=== PATIENT | male | born 1990 | race Caucasian/White ===

== ENCOUNTER 2024-12-17 07:16 | Emergency (ER) | payer BC, OTHER, SELFPAY ==
[2024-12-17] VITALS (19 sets, daily range): BP systolic 78–133; BP diastolic 41–88; PULSE 53–79; RESP 14–18; TEMP 36.4; O2SAT 90–100; BMI 28.9
--- NOTE | 2024-12-17 07:33 | ED_ITS ---
HPI - General Adult General Chief complaint: Chest Pain Stated complaint: chest pain Time Seen by Provider: 12/17/24 07:33 History of Present Illness HPI narrative: Presents with chest pain, started on wednesday- took some ibuprofen and it got better, started last night again at 9- took aspirin and ibuprofen. Having lightheadedness and shortness of breath with it. 34-year-old man presenting to the emergency department with 5 days of chest pain. This pain is sharp and pleuritic and located more on the left side. Does work out regularly and at initial onset thought maybe it was related to workout but had been primarily a leg day. Did go to the chiropractor and got some things adjusted. Subsequently took 800 mg of ibuprofen it seemed to help. Is not having any radicular symptoms. Admittedly might feel little bit better to sit up but it is hard to get comfortable. No noted palpitations. No noted chest trauma. Does not smoke any longer. General sickness in the house and he has had some cold symptoms recently but not any longer. No persistent cough. No fever. Related Data Home Medications ?Medication ?Instructions ?Recorded ?Confirmed No Known Home Medications 07/24/22 12/17/24 Allergies Allergy/AdvReac Type Severity Reaction Status Date / Time No Known Drug Allergies Allergy Verified 12/17/24 07:27 Review of Systems Status of ROS: Reports: 6 or more systems reviewed and unremarkable except as noted in History and below [facility] Social History Narrative: single, no kids, construction Smoking Status: Former smoker Second hand tobacco smoke exposure: No How often do you have a drink containing alcohol: 2-3 times a week How many standard drinks containing alcohol do you have on a typical day: 3 or 4 AUDIT-C Alcohol total score: 4 Non-prescribed substance use: marijuana (any form) Exam Narrative: Exam Narrative: Pleasant. Clearly uncomfortable in splinting his breathing. Hesitates in apparent discomfort to transition; to sit up or lie down. Neck is supple withou t lymphadenopathy. Trachea is midline. There is no supraclavicular crepitus. Lungs are clear with equal expansion the chest. Breath sounds throughout. Pain is not reproducible to palpation over the anterior chest or upper abdomen. Abdomen is soft nontender. Heart in regular rate and rhythm without murmur rub or gallop. Extremities are without edema. He is well-perfused. Const: Vital Signs, click to edit/add: Vital Signs - 24 hr 12/17/24 07:20 12/17/24 07:52 12/17/24 07:53 Temperature 97.6 F Pulse Rate 68 71 Pulse Rate [Pulse Oximeter] 79 Respiratory Rate 18 Blood Pressure 133/81 Blood Pressure [Ri ght Upper Arm] 128/88 Pulse Oximetry 96 97 98 Oxygen Delivery Me thod Room Air 12/17/24 08:00 12/17/24 08:01 12/17/24 08:10 Temperature Pulse Rate 70 70 53 L Pulse Rate [Pulse Oximeter] Respiratory Rate 16 Blood Pressure 118/79 78/47 L Blood Pressure [Ri ght Upper Arm] Pulse Oximetry 98 98 99 Oxygen Delivery Me thod 12/17/24 08:12 12/17/24 08:14 12/17/24 08:15 Temperature Pulse Rate 54 L 56 L 53 L Pulse Rate [Pulse Oximeter] Respiratory Rate Blood Pressure 82/46 L 84/41 L Blood Pressure [Ri ght Upper Arm] Pulse Oximetry 98 90 98 Oxygen Delivery Me thod 12/17/24 08:17 Temperature Pulse Rate 60 Pulse Rate [Pulse Oximeter] Respiratory Rate Blood Pressure 114/52 L Blood Pressure [Ri ght Upper Arm] Pulse Oximetry 97 Oxygen Delivery Me thod Documenting provider has reviewed patient's vital signs: yes Course Vital Signs Vital signs: Initial Vital Signs Temperature 97.6 F 12/17/24 07:20 Temperature Source Oral 12/17/24 07:20 Pulse Rate 79 12/17/24 07:20 Respiratory Rate 18 12/17/24 07:20 Blood Pressure 128/88 12/17/24 07:20 Blood Pressure Mean 101 12/17/24 07:20 Pulse Oximetry 96 12/17/24 07:20 Oxygen Delivery Method Room Air 12/17/24 07:20 Vital Signs Temperature 97.6 F 12/17/24 07:20 Pulse Rate 79 12/17/24 07:20 Respiratory Rate 18 12/17/24 07:20 Blood Pressure 128/88 12/17/24 07:20 Pulse Oximetry 96 12/17/24 07:20 Oxygen Delivery Method Room Air 12/17/24 07:20 Temperature 97.6 F 12/17/24 07:20 Pulse Rate 60 12/17/24 08:17 Respiratory Rate 16 12/17/24 08:01 Blood Pressure 114/52 L 12/17/24 08:17 Pulse Oximetry 97 12/17/24 08:17 Oxygen Delivery Method Room Air 12/17/24 07:20 Medical Decision Making MDM Narrative Medical decision making narrative: I am presented with EKG as I enter the room. This shows a normal sinus rhythm at a rate of 80. I do not see any ischemic changes. Differential would include pneumothorax/pneumomediastinum, pleuritis, pericarditis +/-effusion, pneumonia, pulmonary embolus. Doubtful cardiac ischemia otherwise. Do not see evidence of pericarditis on EKG. Essentially 0 on PERC rule Beau would prefer not to have an IV. Will draw standard labs and chest x-ray and proceed from there. He would take some ibuprofen for pain; does not sound like has had more since initial dosing. 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 He was also noted to be hypotensive and lightheaded. IV now initiated and go to assess. He is a little diaphoretic on his forehead. He says he tends to get lightheaded around needles. It appears that this episode began shortly after the blood draw. Heart rate improves and rhythm appears to normalize. Blood pressure improved. Appears to have had a vasovagal event however puzzling findings on EKG during this episode. Pending repeat EKG Has declined ibuprofen. Medical Records Medical records reviewed: Yes I reviewed the patient's medical records Lab Data Labs: Lab Results 12/17/24 Range/Units 08:00 WBC 5.61 (4.50-11.00) K/uL RBC 5.12 (4.30-5.90) m/uL Hgb 14.9 (13.5-17.5) gm/dL Hct 42.4 (37.0-53.0) % MCV 83 (80-100) fL MCH 29 (26-34) pg MCHC 35 (32-36) gm/dL RDW Coeff of Tamera 11.9 (11.5-15.5) % Plt Count 147 (140-440) K/uL Neut % (Auto) 60.2 (42.0-72.0) % Lymph % (Auto) 27.8 (20-44) % Aiken % (Auto) 9.8 (0.0-11.0) % Eos % (Auto) 1.4 (0.0-7.0) % Baso % (Auto) 0.4 (0.0-3.0) % Neut # (Auto) 3.38 (1.7-7.0) K/uL Lymph # (Auto) 1.56 (0.90-2.90) K/uL Aiken # (Auto) 0.50 (0.00-0.90) K/UL Eos # (Auto) 0.08 (0.00-0.50) K/uL Baso # (Auto) 0.02 (0.00-0.30) K/uL Abs Immat Gran (auto) 0.02 (0.00-0.30) K/uL Imm/Tot Granulo (auto) 0.4 % ECG Data Attestation: I personally reviewed and interpreted this ECG as follows: (Normal sinus rhythm. Rate of 80. No acute ischemic changes) Discharge Plan Discharge Clinical Impression: Pleuritic chest pain Prescriptions: No Action No Known Home Medications Follow Up/Referrals: Chintan Lozoya MD [Primary Care Provider] -
--- NOTE | 2024-12-17 07:49 | CRLHL7_ITS ---
For Patients: As a result of the Cures Act, medical imaging exams and procedure reports are released immediately into your electronic medical record. You may view this report before your referring provider. If you have questions, please contact your health care provider. INDICATION: Chest pain. STEMI. COMPARISON: None TECHNIQUE: Single view study FINDINGS: TUBES AND LINES: None. HEART AND MEDIASTINUM: The heart size is normal. The mediastinal contour appears normal for patient age. LUNGS AND PLEURAL SPACES: The lungs appear normal.The pleural spaces are unremarkable. OSSEOUS STRUCTURES: Age-appropriate appearance. No acute focal finding. IMPRESSION: No evidence of active pulmonary disease. Dictated by Mat Romano MD @ 12/17/2024 8:36:51 AM (Electronically Signed)
[2024-12-17 08:12] LABS: Basophils Absolute Auto 0.02 K/uL (0.00-0.30); Basophils Percent Auto 0.4 % (0.0-3.0); Eosinophils Absolute Auto 0.08 K/uL (0.00-0.50); Eosinophils Percent Auto 1.4 % (0.0-7.0); Hematocrit 42.4 % (37.0-53.0); Hemoglobin* 14.9 gm/dL (13.5-17.5); Immature Granulocytes Abs Auto 0.02 K/uL (0.00-0.30); Immature Granulocytes Pct Auto 0.4 %; Lymphocytes Absolute Auto 1.56 K/uL (0.90-2.90); Lymphocytes Percent Auto 27.8 % (20-44); Mean Corpuscular HGB Conc 35 gm/dL (32-36); Mean Corpuscular Hemoglobin 29 pg (26-34); Mean Corpuscular Volume 83 fL (80-100); Monocytes Percent Auto 9.8 % (0.0-11.0); Neutrophils Absolute Auto 3.38 K/uL (1.7-7.0); Neutrophils Percent Auto 60.2 % (42.0-72.0); Platelet Count* 147 K/uL (140-440); RDW Coefficient of Variation % 11.9 % (11.5-15.5); Red Blood Count 5.12 m/uL (4.30-5.90); White Blood Count* 5.61 K/uL (4.50-11.00)
[2024-12-17 08:18] LABS: Slide Review Reflex No
[2024-12-17 08:37] LABS: Chloride* 104 mmol/L (96-114); Potassium* 4.6 mmol/L (3.6-5.1); Sodium* 137 mmol/L (135-149)
[2024-12-17 08:40] LABS: Anion Gap 10 mEq/L (7-15); Blood Urea Nitrogen* 18 mg/dL (5-24); Carbon Dioxide* 23 mmol/L (20-32); Creatinine* 0.7 mg/dL (0.5-1.5); Est. Creatinine Clearance* 206.74; Estimated Glomerular Filt Rate 124 ml/min
[2024-12-17 08:41] LABS: Calcium* 9.2 mg/dL (8.4-10.6); Glucose* 93 mg/dL (60-115)
[2024-12-17 08:43] LABS: C Reactive Protein* 0.5 mg/dL (0.5-1.0)
[2024-12-17 08:58] LABS: NT Pro B Type NatriureticPept* < 20 pg/mL; Troponin I* < 0.01 ng/mL (0.01-0.04)
[2024-12-17 09:12] LABS: D Dimer Quantitative* < 0.27 ug/ml (0.00-0.50)
--- OUTSIDE RECORDS SUMMARY | 2024-12-17 12:20 | XMS_ITS | Clinical Summary ---
Author Organization [facility] Address [place], [place] [address] Care Team Providers Care Hvac Service Tech Name Role Phone Pcp, No Primary Care Provider Unavailabl e Allergies No known active allergies Medications No known medications Social History Tobacco Use Types Packs/Day Years Used Date Smoking Tobacco: Every Day Cigarettes 0.3 4 Smokeless Tobacco: Never Tobacco Cessation:Ready to Q uit: Yes Alcohol Use Standard Drinks/Week Comments Not Asked 0 (1 standard drink = 0.6 oz pur e alcohol) Sex and Gender Information Value Date Recorded Sex Assigned at Not on file Legal 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 Gender Identity Not on file Sexual Orientation Not on file Obstetrics History Last Filed Vital Signs Vital Sign Reading Time Taken Comments Blood Pressure 100/52 01/05/2012 7:25 PM EARLY CHILDHOOD ASSISTANT Pulse 72 01/05/2012 7:25 PM EARLY CHILDHOOD ASSISTANT Temperature 36.3 C (97.3 F) 01/05/2012 7:25 PM EARLY CHILDHOOD ASSISTANT Respiratory Rate 12 01/05/2012 7:25 PM EARLY CHILDHOOD ASSISTANT Oxygen Saturation 100% 12/18/2011 8:40 PM EARLY CHILDHOOD ASSISTANT Inhaled Oxygen Concentration - - Weight 91.1 kg (200 lb 12.8 oz) 01/05/2012 7:25 PM EARLY CHILDHOOD ASSISTANT Height 203.2 cm (6' 8) 12/18/2011 6:57 PM EARLY CHILDHOOD ASSISTANT Body Mass Index 22.06 12/18/2011 6:57 PM EARLY CHILDHOOD ASSISTANT Plan of Treatment Health Maintenance Due Date Last Done Comments Tdap 2001 Depression screening for age 12+ 2002 HIV for age 15-65 2005 BMI (ht and wt on same day) for age 18+ 2008 Hepatitis C screening for ag e 18-79 2008 Tetanus booster 2010 COVID-19 vaccine series ( season) 2024 Influenza for age 9-49 07/16/2024 Pneumococcal series for age 6-49 Aged Out No longer eligible based on patient's age to complete this topic Insurance [facility] Care Teams Hvac Service Tech Relationship Specialty Start Date End Date Pcp, No . PCP - General 12/18/11
== END 2024-12-17 09:40 | disposition home or self-care (01) ==
PROVIDERS: Emergency Provider Family Medicine; PCP Family Medicine
DX: R07.89 Other chest pain (principal)
CPT/HCPCS: 36415; 71045; 80048; 83880; 84484; 85025; 85379; 86140; 93005; 99284; 99285